=== PATIENT | male | born 1995 | race Caucasian/White ===

== ENCOUNTER 2016-09-13 17:14 | Emergency (ER) | payer OTHER ==
--- NOTE | 2016-09-13 21:10 | RAD ---
INDICATION: Left-sided testicular pain. COMPARISON: There are no prior studies available for comparison. TECHNIQUE: Multiple real-time images of the testicles were obtained including color Doppler images and Doppler tracings. FINDINGS: The testicles are normal in size, shape and echogenicity. The right testicle measured 3.6 x 2.1 x 3.0 cm and the left testicle measured 4.4 x 2.4 x 2.6 cm. No intratesticular mass is seen. There is symmetric vascular flow within both testicles. The epididymides appear to be within normal limits. There are small bilateral hydroceles. IMPRESSION: SMALL BILATERAL HYDROCELES, OTHERWISE UNREMARKABLE STUDY.
--- NOTE | 2016-09-13 23:37 | ED ---
Amina Ordonez Matthew, scribed for Martin Reed MD on 09/13/16 at 2335 . GI/ HPI - HPI Summary HPI Summary: A 21 y/o male presents to the ED with left groin and testicular pain since 3 days ago, which worsened today. The pain is rated 3/10 in severity. There is no known injury. He denies fever and urinary symptoms. He has never had pain like this before. - History of Current Complaint Chief Complaint: EDGeneral Time Seen by Provider: 09/13/16 23:28 Stated Complaint: GROIN PAIN Hx Obtained From: Patient Onset/Duration: Started Days Ago, Atraumatic, Still Present Timing: Constant Severity: Moderate Current Severity: Mild Pain Intensity: 2 Location of Pain: Groin - left Additional Locations for Males: Testicles - left Associated Signs and Symptoms: Positive: Negative. Negative: Fever, UTI Symptoms - Additional Pertinent History Primary Care Physician: JANEEN - Allergy/Home Medications Allergies/Adverse Reactions: Allergies Allergy/AdvReac Type Severity Reaction Status Date / Time Latex Allergy Intermediate skin Verified 02/17/16 13:42 irritation PMH/Surg Hx/FS Hx/Imm Hx Endocrine/Hematology History: Denies: Hx Diabetes Cardiovascular History: Denies: Hx Hypertension History: Denies: Hx Renal Disease Neurological History: Reports: Hx Migraine Infectious Disease History: No Infectious Disease History: Denies: Traveled Outside the [place] in Last 30 Days - Family History Known Family History: Negative: Cardiac Disease, Hypertension, Diabetes - Social History Alcohol Use: Weekly Alcohol Amount: 14 drinks per week-binge drinking on weekends. Hx Substance Use: No Substance Use Type: Reports: Marijuana Hx Tobacco Use: No Smoking Status (MU): Former Smoker Type: Cigarettes Have You Smoked in the Last Year: No Review of Systems Constitutional: Negative Negative: Fever Eyes: Negative ENT: Negative Cardiovascular: Negative Respiratory: Negative Gastrointestinal: Negative Genitourinary: Other - left groin and testicular pain Negative: dysuria, hematuria Musculoskeletal: Negative Skin: Negative Neurological: Negative Psychological: Normal All Other Systems Reviewed And Are Negative: Yes Physical Exam Triage Information Reviewed: Yes Vital Signs On Initial Exam: Initial Vitals Temp Pulse Resp BP Pulse Ox 98.8 F 69 18 118/59 99 09/13/16 17:18 09/13/16 17:18 09/13/16 17:18 09/13/16 17:18 09/13/16 17:18 Vital Signs Reviewed: Yes Appearance: Positive: No Pain Distress - anxious, Thin Skin: Positive: Warm Head/Face: Positive: Normal Head/Face Inspection Eyes: Positive: SHANNAN ENT: Positive: Hearing grossly normal Neck: Positive: Supple Respiratory/Lung Sounds: Positive: Clear to Auscultation, Breath Sounds Present Abdomen Description: Positive: Nontender, Soft Male Genital Exam: Positive: normal genitalia. Negative: testicular tenderness (R), testicular tenderness (L) Musculoskeletal: Positive: Strength/ROM Intact Neurological: Positive: Sensory/Motor Intact, Alert, Oriented to Person Place, Time Psychiatric: Positive: Affect/Mood Appropriate Diagnostics - Vital Signs Vital Signs Temp Pulse Resp BP Pulse Ox 09/13/16 22:15 98.1 F 67 16 119/72 100 09/13/16 19:39 98.8 F 70 16 98/62 100 09/13/16 18:16 98.4 F 90 18 126/75 100 09/13/16 17:18 98.8 F 69 18 118/59 99 - Laboratory Lab Statement: Any lab studies that have been ordered have been reviewed, and results considered in the medical decision making process. - Ultrasound No standard instances Ultrasound Interpretation: Positive (See Comments) - IMPRESSION: SMALL BILATERAL HYDROCELES, OTHERWISE UNREMARKABLE STUDY. Ultrasound Interpretation Completed By: Radiologist Re-Evaluation - Re-Evaluation First Eval Change: Improved GIGU Course/Dx - Course Assessment/Plan: A 21 y/o male presents to the ED with left groin and testicular pain since 3 days ago, which worsened today. The pain is rated 3/10 in severity. There is no known injury. He denies fever and urinary symptoms. US shows small bilateral hydroceles, otherwise unremarkable study. The patient did well in the ED and will be discharged home with [facility] follow-up. - Diagnoses Provider Diagnoses: Groin strain Discharge - Discharge Plan Condition: Stable Disposition: HOME Patient Education Materials: Groin Strain (ED) Referrals: Jared Farias [Primary Care Provider] - 3 Days Emmett Jo MD [Medical Doctor] - If Needed Additional Instructions: Please follow-up with [facility] in 3 days. The documentation as recorded by the Amian martinez Matthew accurately reflects the service I personally performed and the decisions made by Derek choudhury David, MD.
[2016-09-14 00:23] VITALS: BP 134/53
== END 2016-09-14 00:21 | disposition home or self-care (01) ==
LOC: ED 17:14
DX: S39.013A Strain of muscle, fascia and tendon of pelvis, initial encounter (principal); X58.XXXA Exposure to other specified factors, initial encounter; Y93.9 Activity, unspecified; Y92.9 Unspecified place or not applicable; Z87.891 Personal history of nicotine dependence
CPT/HCPCS: 76870; 99282